=== PATIENT | male | born 1970 | race Caucasian/White ===

== ENCOUNTER → 2020-08-28 | Outpatient (CLI) | payer OTHER ==
[2020-08-31 17:07] LABS: ANA (HEP2) Negative (.)
--- NOTE | 2020-09-02 11:29 | REP ---
BILATERAL HAND SERIES: 8-VIEWS HISTORY: Arthralgia. FINDINGS: Four views of the right wrist demonstrate overall normal mineralization. 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 There is minimal narrowing of the second carpometacarpal articulation and minimal spurring is seen at the first carpometacarpal articulation on the right. No erosive changes are seen. The right hand views are otherwise unremarkable. On the left, there is overall normal mineralization. There is mild spurring at the interphalangeal (IP) joint of the thumb. There is a small metallic foreign body in the soft tissues dorsally at the first metacarpophalangeal joint of the thumb. Bones, joints, and soft tissues are otherwise unremarkable. IMPRESSION: Small metallic foreign body at the dorsal soft tissues of the left first carpometacarpal articulation. Interphalangeal (IP) joint spurring at the thumb on the left. 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 MTDD
--- NOTE | 2020-09-02 11:33 | REP ---
BILATERAL ANKLE SERIES: 8-VIEWS HISTORY: Arthralgia. FINDINGS: Four views of the left ankle demonstrate an intact ankle mortise. There is Achilles and plantar calcaneal spurring. Minimal distal tibial spurring is seen. On the right, the ankle mortise is intact. There is mild spurring of the medial talar dome and more prominent osteoarthritic spurring is seen at the tibiotalar articulation anteriorly. There is Achilles calcaneal spurring and plantar calcaneal spurring on the right as well. IMPRESSION: Bilateral heel spurring. Osteoarthritic spurring at the ankles bilaterally, right greater than left. MTDD
--- NOTE | 2020-09-02 11:34 | REP ---
BILATERAL WRIST SERIES HISTORY: Arthralgia. TECHNIQUE: Four views of bilateral wrists are performed. FINDINGS: There is no acute fracture or dislocation bilaterally. On the right, there is diffuse sclerotic density in the lunate bone with some irregularity along the cortex. There appears to be mild collapse of the bone itself. Findings are compatible with osteonecrosis. There is mild narrowing of the radiocarpal joint. There is slight narrowing between the scaphoid and adjacent distal carpal bones. The ulna is somewhat shorter than the radius compatible with ulnar minus variance. It appears to be about 6 mm shorter. On the left, the joint spaces appear relatively normal without significant arthritic change. IMPRESSION: Ulnar minus variance right wrist with the ulna approximately 5-6 mm shorter than the radius. Sclerotic density and some collapse of the lunate bone consistent with osteonecrosis. Mild arthritic change radiocarpal joint. Unremarkable left wrist. [facility]
== END ==
LOC: M WUC 11:31
PROVIDERS: ATTEND Internal Medicine
DX: I73.00 Raynaud's syndrome without gangrene (principal); M25.40 Effusion, unspecified joint; M19.041 Primary osteoarthritis, right hand; M19.042 Primary osteoarthritis, left hand; M77.8 Other enthesopathies, not elsewhere classified; M19.032 Primary osteoarthritis, left wrist; M77.31 Calcaneal spur, right foot; M77.32 Calcaneal spur, left foot

== ENCOUNTER → 2020-09-21 | Outpatient (REF) | payer OTHER ==
[2020-09-21 18:00] LABS: APPEARANCE, URINE CLEAR (CLEAR); BACTERIA, URINE AUTO NEGATIVE (NEGATIVE); BILIRUBIN, URINE AUTO NEGATIVE (NEGATIVE); BLOOD, URINE BLOOD NEGATIVE (NEGATIVE); COLOR, URINE YELLOW (YELLOW); GLUCOSE, URINE (UA) AUTO NEGATIVE (NEGATIVE); KETONE, URINE AUTO NEGATIVE (NEGATIVE); LEUKOCYTE ESTERASE, URINE AUTO NEGATIVE (NEGATIVE); MUCUS, URINE SMALL (NEGATIVE); NITRITE, URINE AUTO NEGATIVE (NEGATIVE); PROTEIN, URINE AUTO NEGATIVE (NEGATIVE); RBC, URINE AUTO 0 /HPF (0-3); SPECIFIC GRAVITY URINE AUTO 1.017 (1.002-1.035); SQUAMOUS EPITHELIAL CELL UR AU 0 /HPF (0-6); UROBILINOGEN, URINE AUTO 0.2 mg/dL (0.0-2.0); WBC, URINE AUTO 0 /HPF (0-3)
[2020-09-21 18:02] LABS: BASO % 0.4 % (0.0-1.0); EOS # 0.2 10^3/uL (0.0-0.5); EOS % 1.8 % (0.0-3.0); HEMATOCRIT 51.3 % (42.0-52.0); HEMOGLOBIN 16.1 g/dl (13.5-17.5); LYMPH # 1.7 10^3/uL (1.5-5.0); LYMPH % 18.3 % (24.0-44.0); MEAN CORPUSCULAR HEMOGLOBIN 29.6 pg (27.0-33.0); MEAN CORPUSCULAR HGB CONC 31.4 g/dl (32.0-36.5); MEAN CORPUSCULAR VOLUME 94.3 fl (80.0-96.0); MONO # 0.6 10^3/uL (0.0-0.8); NEUTROPHILS # 6.8 10^3/uL (1.5-8.5); NEUTROPHILS % 73.1 % (36.0-66.0); PLATELET COUNT, AUTOMATED 310 10^3/uL (150-450); RED BLOOD COUNT 5.44 10^6/uL (4.30-6.10); WHITE BLOOD COUNT 9.2 10^3/uL (4.0-10.0)
[2020-09-21 18:50] LABS: CREATININE,RANDOM URINE 98.8 MG/DL
[2020-09-21 19:11] LABS: COMPLEMENT C3 148 MG/DL (90-180); COMPLEMENT C4 22 MG/DL (10-40); RHEUMATOID FACTOR QUANT < 10.0 IU/ML (<15.0); TOTAL PROTEIN 7.9 GM/DL (6.4-8.2)
[2020-09-22 14:22] LABS: ALBUMIN 4.44 GM/DL (3.29-5.55); ALBUMIN % 56.2 % (55.8-66.1); ALPHA-1-GLOBULIN % 4.6 % (2.9-4.9); ALPHA-1-GLOBULINS 0.36 GM/DL (0.17-0.41); ALPHA-2-GLOBULINS 0.92 GM/DL (0.42-0.99); ALPHA-2-GLOBULINS % 11.7 % (7.1-11.8); BETA-1-GLOBULINS 0.45 GM/DL (0.28-0.60); BETA-1-GLOBULINS % 5.7 % (4.7-7.2); BETA-2-GLOBULINS 0.35 GM/DL (0.19-0.55); BETA-2-GLOBULINS % 4.4 % (3.2-6.5); GAMMA GLOBULIN % 17.4 % (11.1-18.8); GAMMA GLOBULINS 1.37 GM/DL (0.65-1.58)
[2020-09-23 11:02] LABS: DRVV SCREEN 35.3 SEC
[2020-09-23 11:06] LABS: PTT LUPUS TYPE ANTICOAG SCREEN 0.9 (0-1.2)
[2020-09-24 13:08] LABS: ANTI CENTROMERE ANTIBODY <0.2 AI (0.0-0.9); ANTI DS-DNA AB Negative (Negative); ANTI SCLERODERMA ANTIBODIES <0.2 AI (0.0-0.9); ANTI-HISTONE ANTIBODIES 0.4 Units (0.0-0.9); BETA-2 GLYCOPROTEIN I ABY IGA <9 (0-25); BETA-2 GLYCOPROTEIN I ABY IGG <9 (0-20); BETA-2 GLYCOPROTEIN I ABY IGM <9 (0-32); CARDIOLIPIN IGA ANTIBODY <9 APL U/mL (0-11); CARDIOLIPIN IGG ANTIBODY <9 GPL U/mL (0-14); CARDIOLIPIN IGM ANTIBODY 26 MPL U/mL (0-12); COMPLEMENT TOTAL (CH50) > 60 U/mL (>41); CYCLIC CITRULLINATED PEPTIDE 66 units (0-19); SSA SJOGRENS A <0.2 AI (0.0-0.9); SSB SJOGRENS B <0.2 AI (0.0-0.9)
== END ==
LOC: M SFHCRHEU 13:08
PROVIDERS: ATTEND Internal Medicine
DX: M06.4 Inflammatory polyarthropathy (principal)

== ENCOUNTER → 2020-10-12 | Outpatient (CLI) | payer OTHER ==
[2020-10-14 14:13] LABS: RNP ANTIBODY > 8.0 AI (0.0-0.9); SMITHS ANTIBODY < 0.2 AI (0.0-0.9)
== END ==
LOC: M WUC 11:24
PROVIDERS: ATTEND Internal Medicine
DX: M06.4 Inflammatory polyarthropathy (principal)

== ENCOUNTER → 2021-03-02 | Outpatient (CLI) | payer OTHER ==
--- NOTE | 2021-03-03 10:38 | ECHO ---
DATE OF PROCEDURE: 03/02/2021 Age: 50 Gender: Male Height: 182 cm Weight: 162 kg REFERRING PHYSICIAN: Katt Romano M.D. INDICATION: Mixed connective tissue disease. MEASUREMENTS: IVS 1.5 cm LV 4.6 cm LVPW 3.5 cm LA 3.7 cm Aorta 3.1 cm IVC 1.5 cm Mitral E wave velocity 85 cm/s Mitral A wave 65 cm/s E prime septal 7.7 cm/s E prime lateral 9.5 cm/s FINDINGS: This study is of fair technical quality corresponding to patients body habitus. Patient is in sinus rhythm. Left ventricle is normal size. Moderate left ventricular hypertrophy is noted. Overall normal LV systolic function with estimated LVEF 60% to 65%. Right ventricle was relatively poorly seen, but does not appear enlarged. Both atria appear normal. Aortic, mitral, and tricuspid valves appear normal. Pulmonic valve was not well visualized. No pericardial effusion is noted. Inferior vena cava is normal size and appropriately collapses with inspiration indicative of normal central venous pressure. Aortic root and aortic arch appear normal. Abdominal aorta was not well seen. Doppler interrogation reveals competent aortic valve without significant stenosis or insufficiency. The same applies for mitral and tricuspid valves. Mitral inflow pattern and tissue Doppler imaging of the mitral annulus revealed normal diastolic function. CONCLUSIONS: 1. Study is of difficult technical quality corresponding to patients body habitus, underlying sinus rhythm. 2. Normal LV size with moderate LVH and preserved LV systolic and diastolic function. 3. No significant valvular disease. 4. Likely normal central venous pressure. 5. Unable to estimate pulmonary artery pressure, but no signs to suggest pulmonary hypertension. MTDD
== END ==
LOC: M CARPUL 08:23
PROVIDERS: ATTEND Internal Medicine
DX: M35.1 Other overlap syndromes (principal)

== ENCOUNTER → 2023-06-26 | Day surgery (SDC) | payer OTHER ==
[~2023-06-26] VITALS: Ht 182.9 cm; Wt 143.5 kg
[~2023-06-26] MED LIST: ATOR1TAB19 PO; LORA-243 PO; NS 1,000 ML IV ONE; PRIL20TA2 PO; VALS320T2 PO; VITMTA PO; hemp oil PO; propofoL 200 MG/20 ML VIAL As Ordered ONE
[2023-06-26 11:10] VITALS: BP 131/70; TEMP 97.3; O2SAT 96
== END | disposition home or self-care (01) ==
LOC: M OPP 08:37
PROVIDERS: ATTEND Internal Medicine Gastroenterology
DX: Z12.11 Encounter for screening for malignant neoplasm of colon (principal); D12.2 Benign neoplasm of ascending colon; K63.5 Polyp of colon; K57.30 Diverticulosis of large intestine without perforation or abscess without bleeding; K62.89 Other specified diseases of anus and rectum; F17.200 Nicotine dependence, unspecified, uncomplicated; Z79.02 Long term (current) use of antithrombotics/antiplatelets; Z79.899 Other long term (current) drug therapy

== ENCOUNTER 2024-03-10 08:24 | Inpatient (IN) | payer OTHER ==
[~2024-03-10] VITALS: Ht 182.9 cm; Wt 143.8 kg
[2024-03-10] VITALS (45 sets, daily range): BP systolic 62–127; BP diastolic 35–67; TEMP 99.7–101.5; O2SAT 91–100
[~2024-03-10 08:24] MED LIST changes: -NS 1,000 ML IV ONE; -propofoL 200 MG/20 ML VIAL As Ordered ONE
[2024-03-10] MEDS ORDERED: BACTDSTA PO (08:34)
[2024-03-10] MEDS ORDERED: NICOTINE 21MG/24HR 1 EA TRANSDERMAL TD SCH (09:00)
[2024-03-10] MEDS ORDERED: VANCOMYCIN HCL 2,000 MG in D5W 500 ML IV ONE (09:10)
[2024-03-10] MEDS: NS 3,000 ML in IV 1 EA IV STA (09:58)
[2024-03-10] MEDS: VANCOMYCIN HCL 1,000 MG, VIAL MATE ADAPTER 1 EACH in D5W 250 ML IV ONE ×2 (10:00→12:31)
[2024-03-10 10:01] LABS: BASO # 0.1 10^3/uL (0.0-0.2); BASO % 0.2 % (0.0-1.0); HEMATOCRIT 44.7 % (42.0-52.0); HEMOGLOBIN 15.4 g/dl (13.5-17.5); LYMPH # 0.3 10^3/uL (1.5-5.0); LYMPH % 1.2 % (24.0-44.0); MEAN CORPUSCULAR HGB CONC 34.5 g/dl (32.0-36.5); MEAN CORPUSCULAR VOLUME 92.7 fl (80.0-96.0); MONO # 1.4 10^3/uL (0.0-0.8); MONO % 4.9 % (2.0-8.0); NEUTROPHILS # 26.2 10^3/uL (1.5-8.5); NEUTROPHILS % 92.7 % (36.0-66.0); PLATELET COUNT, AUTOMATED 297 10^3/uL (150-450); RED BLOOD COUNT 4.82 10^6/uL (4.30-6.10); WHITE BLOOD COUNT 28.2 10^3/uL (4.0-10.0)
[2024-03-10 10:04] LABS: APPEARANCE, URINE HAZY (CLEAR); BACTERIA, URINE AUTO 1+ (NEGATIVE); BILIRUBIN, URINE AUTO NEGATIVE (NEGATIVE); BLOOD, URINE BLOOD NEGATIVE (NEGATIVE); COLOR, URINE AMBER (YELLOW); GLUCOSE, URINE (UA) AUTO NEGATIVE (NEGATIVE); KETONE, URINE AUTO NEGATIVE (NEGATIVE); LEUKOCYTE ESTERASE, URINE AUTO NEGATIVE (NEGATIVE); MUCUS, URINE SMALL (NEGATIVE); NITRITE, URINE AUTO NEGATIVE (NEGATIVE); PROTEIN, URINE AUTO 1+ mg/dL (NEGATIVE); RBC, URINE AUTO 3 /HPF (0-3); SQUAMOUS EPITHELIAL CELL UR AU 0 /HPF (0-6); WBC, URINE AUTO 16 /HPF (0-3)
[2024-03-10] MEDS: PIPERACILLIN/TAZOBACTAM SOD 4.5 GM in D5W MINI-BAG PLUS 50 ML IV ONE (10:07)
[2024-03-10 10:12] LABS: INR 1.39; PARTIAL THROMBOPLASTIN TIME 29.1 SECONDS (24.8-34.2); PROTHROMBIN TIME 16.6 SECONDS (12.5-14.5)
[2024-03-10] MEDS ORDERED: CENT1TAB PO (10:19)
[2024-03-10] MEDS ORDERED: HOME MED LIST COMPLETE! XX SCH (10:20)
[2024-03-10 10:33] LABS: ALBUMIN 2.9 G/DL (3.2-5.2); BILIRUBIN,DIRECT 0.3 MG/DL (<0.4); BILIRUBIN,TOTAL 0.6 MG/DL (0.3-1.2)
[2024-03-10] MEDS: ACETAMINOPHEN 325 MG TAB PO ONE (10:41)
[2024-03-10 10:54] LABS: PROCALCITONIN 2.03 ng/ml
[2024-03-10 10:59] LABS: C REACTIVE PROTEIN QUANTITATIV 38.2 MG/DL (<1.0)
[2024-03-10] MEDS ORDERED: SUCCINYLCHOLINE 100MG/5ML SYRINGE As Ordered ONE (14:17)
[2024-03-10] MEDS ORDERED: ETOMIDATE INJ 20MG/10ML VIAL As Ordered ONE (14:17)
[2024-03-10 14:18] LABS: CALCIUM LEVEL 8.7 MG/DL (8.5-10.1); CREATININE FOR GFR 3.05 MG/DL (0.70-1.30); GLOMERULAR FILTRATION RATE 23.2 (>56); POTASSIUM SERUM 4.3 MMOL/L (3.5-5.1)
[2024-03-10] MEDS ORDERED: MORPHINE 2 MG/ML 1ML VIAL IV PRN (14:30)
[2024-03-10] MEDS ORDERED: MORPHINE 4 MG/ML 1ML VIAL IV PRN (14:30)
[2024-03-10] MEDS: NS 1,000 ML IV ONE ×2 (14:31→21:02)
[2024-03-10] MEDS ORDERED: LORazepam 2 MG TAB PO PRN (14:35)
[2024-03-10] MEDS: PHENYLephrine 500MCG 5ML (100MCG/ML) SYRINGE IV ONE (14:45)
[2024-03-10] MEDS ORDERED: VASOPRESSIN INJ 20UNITS/ML 1ML VIAL As Ordered ONE (14:46)
[2024-03-10] MEDS ORDERED: fentaNYL 100 MCG/2 ML INJECTION As Ordered ONE (15:05)
[2024-03-10] MEDS ORDERED: PHENYLEPHRINE 10MG/ML 1ML VIAL IV ONE (15:05)
[2024-03-10] MEDS ORDERED: ROCURONIUM BROMIDE 50MG/5ML VIAL As Ordered ONE (15:12)
[2024-03-10] MEDS ORDERED: ONDANSETRON 4MG 2ML VIAL As Ordered ONE (15:25)
[2024-03-10] MEDS ORDERED: METOCLOPRAMIDE INJ 10MG/2ML VIAL As Ordered ONE (15:25)
[2024-03-10] MEDS ORDERED: PROPOFOL 1,000 MG/100 ML VIAL As Ordered ONE (16:01)
[2024-03-10] MEDS: propofoL 1,000 MG in IV 1 EA IV SCH (16:18)
[2024-03-10] MEDS: fentaNYL 100 MCG/2 ML INJECTION IV PRN ×2 (16:27→17:28)
[2024-03-10] MEDS: LIDOCAINE 2% 5ML JELLY UROJET As Ordered ONE (16:34)
[2024-03-10 16:52] LABS: ABG BASE EXCESS -10.2 (-2.0-2.0); ABG HCO3 16.7 MMOL/L (22.0-26.0); ABG O2 SATURATION 94.6 % (95.0-99.0); ABG PARTIAL PRESSURE CO2 40.1 mmHg (35.0-45.0); ABG PARTIAL PRESSURE O2 82.5 mmHg (75.0-100.0); ABG STANDARD HCO3 16.4 MMOL/L. (22.0-26.0); ABG TOTAL CO2 17.9 MMOL/L (22.0-29.0)
[2024-03-10 16:53] LABS: ABG pH (ARTERIAL) 7.237 UNITS (7.350-7.450)
[2024-03-10] MEDS ORDERED: INSULIN LISPRO (NovoLOG) PER UNIT SC PRN (16:55)
[2024-03-10] MEDS ORDERED: HYDROMORPHONE HCL 0.5 MG/ 0.5 ML SYRINGE IV PRN (16:55)
[2024-03-10] MEDS ORDERED: ONDANSETRON 4MG 2ML VIAL IV PRN (16:55)
[2024-03-10] MEDS ORDERED: diphenhydrAMINE 50MG/ML VIAL IV PRN (16:55)
[2024-03-10] MEDS ORDERED: NS 1,000 ML IV SCH (16:55)
[2024-03-10] MEDS ORDERED: oxyCODONE 5MG TAB PO PRN (16:55)
[2024-03-10] MEDS ORDERED: GLUCAGON INJ 1MG VIAL SC PRN (16:55)
[2024-03-10] MEDS ORDERED: fentaNYL 100 MCG/2 ML INJECTION IV PRN ×2 (16:55→17:20)
[2024-03-10] MEDS ORDERED: DEXTROSE 50% 50ML SYRINGE IV PRN (16:55)
[2024-03-10] MEDS ORDERED: MEPERIDINE 25 MG/ML 1ML VIAL IV PRN (16:55)
[2024-03-10] MEDS ORDERED: GLUCOSE 4 GM CHEW PO PRN (16:55)
[2024-03-10] MEDS ORDERED: fentaNYL 100 MCG/2 ML INJECTION IV ONE (16:55)
[2024-03-10] MEDS ORDERED: METOCLOPRAMIDE INJ 10MG/2ML VIAL IV PRN (16:55)
[2024-03-10] MEDS ORDERED: PHENYLephrine 500MCG 5ML (100MCG/ML) SYRINGE As Ordered ONE (16:56)
[2024-03-10] MEDS ORDERED: CLINDAMYCIN 600 MG in IV 1 EA IV SCH (17:00)
[2024-03-10] MEDS: SODIUM BICARBONATE 8.4% INJ 50ML SYRINGE IV STA (17:16)
[2024-03-10] MEDS ORDERED: FENTANYL DRIP LOCK BOX KEY 1 EACH XX PRN (17:20)
[2024-03-10 17:25] LABS: CALCIUM LEVEL 7.3 MG/DL (8.5-10.1); CREATININE FOR GFR 2.12 MG/DL (0.70-1.30); GLOMERULAR FILTRATION RATE 35.2 (>56); POTASSIUM SERUM 4.1 MMOL/L (3.5-5.1)
[2024-03-10] MEDS: PIPERACILLIN/TAZOBACTAM SOD 3.375 GM in D5W MINI-BAG PLUS 50 ML IV SCH (18:00)
[2024-03-10] MEDS: LACTOBACILLUS ACIDOPHILUS CAP (BACID) PO SCH (18:00)
[2024-03-10] MEDS: LR 1,000 ML IV ONE (18:00)
[2024-03-10] MEDS: MULTIVITAMINS/MINERALS THERAP 1 TAB PO SCH (18:15)
[2024-03-10] MEDS: FOLIC ACID 1MG TAB PO SCH (18:15)
[2024-03-10] MEDS: THIAMINE 100 MG TAB PO SCH (18:15)
[2024-03-10 18:33] LABS: ABG BASE EXCESS -7.4 (-2.0-2.0); ABG O2 SATURATION 95.4 % (95.0-99.0); ABG PARTIAL PRESSURE CO2 31.4 mmHg (35.0-45.0); ABG PARTIAL PRESSURE O2 80.6 mmHg (75.0-100.0); ABG STANDARD HCO3 18.4 MMOL/L. (22.0-26.0); ABG TOTAL CO2 17.9 MMOL/L (22.0-29.0); ABG pH (ARTERIAL) 7.351 UNITS (7.350-7.450)
[2024-03-10] MEDS: fentaNYL CITRATE/NaCl 1,000 MCG in IV 1 EA IV SCH (19:05)
[2024-03-10] MEDS: CLINDAMYCIN 900 MG in IV 1 EA IV SCH (19:09)
[2024-03-10] MEDS: LR 1,000 ML IV SCH (19:20)
[2024-03-10] MEDS: MIDAZOLAM 100MG/100ML-0.9%NACL 100 MG in IV 1 EA IV SCH (20:05)
[2024-03-10] MEDS ORDERED: NOREPINEPHRINE 4MG/4ML AMP As Ordered ONE (20:43)
[2024-03-10] MEDS: NOREPINEPHRINE 4MG IN D5 250ML 4 MG in IV 1 EA IV SCH (20:49)
[2024-03-10] MEDS: MIDAZOLAM INJ 2MG/2ML VIAL IV PRN (21:00)
[2024-03-10] MEDS ORDERED: PANTOPRAZOLE 40MG VIAL IV SCH (21:00)
[2024-03-10] MEDS: PANTOPRAZOLE 40MG VIAL IV SCH (21:04)
[2024-03-10 21:39] LABS: HEMOGLOBIN 12.6 g/dl (13.5-17.5)
[2024-03-11] VITALS (53 sets, daily range): BP systolic 78–132; BP diastolic 40–64; TEMP 97.9–101.7; O2SAT 93–99
[2024-03-11] MEDS: NS 1,000 ML IV ONE (02:41)
[2024-03-11] MEDS: NS 500 ML IV ONE (03:52)
[2024-03-11 04:40] LABS: HEMATOCRIT 32.5 % (42.0-52.0); HEMOGLOBIN 10.8 g/dl (13.5-17.5); MEAN CORPUSCULAR HEMOGLOBIN 31.6 pg (27.0-33.0); MEAN CORPUSCULAR HGB CONC 33.2 g/dl (32.0-36.5); PLATELET COUNT, AUTOMATED 265 10^3/uL (150-450); RED BLOOD COUNT 3.42 10^6/uL (4.30-6.10)
[2024-03-11 05:09] LABS: ALBUMIN 1.7 G/DL (3.2-5.2); BILIRUBIN,TOTAL 0.2 MG/DL (0.3-1.2); CREATININE FOR GFR 1.52 MG/DL (0.70-1.30); GLOMERULAR FILTRATION RATE 51.7 (>56); POTASSIUM SERUM 3.6 MMOL/L (3.5-5.1); TOTAL PROTEIN 4.6 G/DL (5.7-8.2)
[2024-03-11] MEDS: HEPARIN SOD (PORCINE) 5000UNITS/ML 1ML VIAL/SYRINGE SQ SCH (06:00)
[2024-03-11 06:10] LABS: ABG BASE EXCESS -5.6 (-2.0-2.0); ABG HCO3 20.2 MMOL/L (22.0-26.0); ABG O2 SATURATION 68.7 % (95.0-99.0); ABG PARTIAL PRESSURE CO2 40.5 mmHg (35.0-45.0); ABG STANDARD HCO3 19.3 MMOL/L. (22.0-26.0); ABG TOTAL CO2 21.4 MMOL/L (22.0-29.0); ABG pH (ARTERIAL) 7.315 UNITS (7.350-7.450)
[2024-03-11 06:12] LABS: ABG PARTIAL PRESSURE O2 35.7 mmHg (75.0-100.0)
[2024-03-11 06:40] LABS: ABG BASE EXCESS -6.4 (-2.0-2.0); ABG HCO3 18.3 MMOL/L (22.0-26.0); ABG O2 SATURATION 97.7 % (95.0-99.0); ABG PARTIAL PRESSURE CO2 33.7 mmHg (35.0-45.0); ABG PARTIAL PRESSURE O2 99.1 mmHg (75.0-100.0); ABG STANDARD HCO3 19.3 MMOL/L. (22.0-26.0); ABG TOTAL CO2 19.3 MMOL/L (22.0-29.0); ABG pH (ARTERIAL) 7.352 UNITS (7.350-7.450)
[2024-03-11] MEDS ORDERED: dexmedeTOMidine 200 MCG in IV 1 EA IV SCH (08:15)
[2024-03-11 08:22] LABS: VANCOMYCIN RANDOM 5.6 UG/ML
[2024-03-11] MEDS: VANCOMYCIN HCL 1,000 MG, VIAL MATE ADAPTER 1 EACH in D5W 250 ML IV SCH ×2 (09:00→15:34)
[2024-03-11 09:45] LABS: ABG BASE EXCESS -4.8 (-2.0-2.0); ABG HCO3 19.2 MMOL/L (22.0-26.0); ABG O2 SATURATION 97.7 % (95.0-99.0); ABG PARTIAL PRESSURE CO2 32.3 mmHg (35.0-45.0); ABG PARTIAL PRESSURE O2 99.1 mmHg (75.0-100.0); ABG STANDARD HCO3 20.5 MMOL/L. (22.0-26.0); ABG TOTAL CO2 20.2 MMOL/L (22.0-29.0); ABG pH (ARTERIAL) 7.392 UNITS (7.350-7.450)
[2024-03-11] MEDS: SODIUM BICARBONATE 150 MEQ in STERILE WATER LITER BAG 1,000 ML IV SCH (09:48)
[2024-03-11] MEDS: ACETAMINOPHEN TAB 650MG DOSE (2X325MG) PO PRN (14:14)
[2024-03-11] MEDS: MORPHINE 2 MG/ML 1ML VIAL IV PRN (15:34)
[2024-03-11] MEDS: SENNA 8.6 MG TAB (SENOKOT) PO SCH (21:09)
[2024-03-12] VITALS (11 sets, daily range): BP systolic 85–144; BP diastolic 49–88; TEMP 97.7–100.2; O2SAT 97–99
[2024-03-12 07:00] LABS: BASO # 0.1 10^3/uL (0.0-0.2); BASO % 0.4 % (0.0-1.0); EOS # 0.1 10^3/uL (0.0-0.5); EOS % 0.9 % (0.0-3.0); HEMOGLOBIN 10.6 g/dl (13.5-17.5); LYMPH # 1.1 10^3/uL (1.5-5.0); LYMPH % 9.6 % (24.0-44.0); MEAN CORPUSCULAR HEMOGLOBIN 30.2 pg (27.0-33.0); MEAN CORPUSCULAR HGB CONC 32.1 g/dl (32.0-36.5); MONO # 0.7 10^3/uL (0.0-0.8); MONO % 5.9 % (2.0-8.0); NEUTROPHILS # 9.8 10^3/uL (1.5-8.5); NEUTROPHILS % 82.4 % (36.0-66.0); PLATELET COUNT, AUTOMATED 269 10^3/uL (150-450); RED BLOOD COUNT 3.51 10^6/uL (4.30-6.10); WHITE BLOOD COUNT 11.9 10^3/uL (4.0-10.0)
[2024-03-12 07:28] LABS: ALBUMIN 1.9 G/DL (3.2-5.2); ALKALINE PHOSPHATASE 79 U/L (46-116); ALT/SGPT 34 U/L (7.0-40); AST/SGOT 24 U/L (<34); BILIRUBIN,TOTAL 0.4 MG/DL (0.3-1.2); BLOOD UREA NITROGEN 12 MG/DL (9-23); CALCIUM LEVEL 7.2 MG/DL (8.5-10.1); CARBON DIOXIDE LEVEL 27 MMOL/L (20-31); CHLORIDE LEVEL 105 MMOL/L (98-107); CREATININE FOR GFR 0.92 MG/DL (0.70-1.30); GLOMERULAR FILTRATION RATE > 60.0 (>56); GLUCOSE, FASTING 107 MG/DL (60-100); MAGNESIUM LEVEL 2.3 MG/DL (1.8-2.4); POTASSIUM SERUM 3.7 MMOL/L (3.5-5.1); SODIUM LEVEL 137 MMOL/L (136-145); TOTAL PROTEIN 4.9 G/DL (5.7-8.2)
[2024-03-12] MEDS: ENOXAPARIN 40MG/0.4ML SYRINGE (J1650 PER 10MG) SC SCH (07:50)
[2024-03-12] MEDS: ATORVASTATIN 10 MG TAB PO SCH (07:52)
[2024-03-12] MEDS ORDERED: VANCOMYCIN HCL 1,000 MG, VIAL MATE ADAPTER 1 EACH in D5W 250 ML IV SCH (08:00)
[2024-03-12] MEDS ORDERED: ENOXAPARIN 40MG/0.4ML SYRINGE (J1650 PER 10MG) SC SCH (09:00)
[2024-03-13 06:00] VITALS: BP 126/70; TEMP 97.9; O2SAT 96
[2024-03-13 06:10] LABS: BASO % 0.5 % (0.0-1.0); EOS # 0.2 10^3/uL (0.0-0.5); EOS % 1.8 % (0.0-3.0); HEMATOCRIT 32.6 % (42.0-52.0); HEMOGLOBIN 10.9 g/dl (13.5-17.5); LYMPH # 1.4 10^3/uL (1.5-5.0); LYMPH % 16.6 % (24.0-44.0); MEAN CORPUSCULAR HEMOGLOBIN 31.1 pg (27.0-33.0); MEAN CORPUSCULAR HGB CONC 33.4 g/dl (32.0-36.5); MEAN CORPUSCULAR VOLUME 92.9 fl (80.0-96.0); MONO # 0.7 10^3/uL (0.0-0.8); MONO % 7.7 % (2.0-8.0); NEUTROPHILS # 6.1 10^3/uL (1.5-8.5); NEUTROPHILS % 72.3 % (36.0-66.0); PLATELET COUNT, AUTOMATED 293 10^3/uL (150-450); RED BLOOD COUNT 3.51 10^6/uL (4.30-6.10); WHITE BLOOD COUNT 8.4 10^3/uL (4.0-10.0)
[2024-03-13 06:28] LABS: ALKALINE PHOSPHATASE 82 U/L (46-116); ALT/SGPT 36 U/L (7.0-40); AST/SGOT 32 U/L (<34); BILIRUBIN,TOTAL 0.3 MG/DL (0.3-1.2); BLOOD UREA NITROGEN 13 MG/DL (9-23); CALCIUM LEVEL 7.8 MG/DL (8.5-10.1); CARBON DIOXIDE LEVEL 27 MMOL/L (20-31); CHLORIDE LEVEL 104 MMOL/L (98-107); CREATININE FOR GFR 0.94 MG/DL (0.70-1.30); GLOMERULAR FILTRATION RATE > 60.0 (>56); GLUCOSE, FASTING 97 MG/DL (60-100); MAGNESIUM LEVEL 2.5 MG/DL (1.8-2.4); POTASSIUM SERUM 3.9 MMOL/L (3.5-5.1); SODIUM LEVEL 138 MMOL/L (136-145); TOTAL PROTEIN 5.1 G/DL (5.7-8.2)
[2024-03-13 07:11] LABS: HIV 1&2 SCREEN NEGATIVE (NEGATIVE)
[2024-03-13 07:19] LABS: HEPATITIS C VIRUS ABY INDEX < 0.02 INDEX (<0.8)
[2024-03-13] MEDS: CEPHALEXIN 500 MG CAP PO SCH (13:00)
[2024-03-13 14:00] VITALS: BP 123/71; TEMP 98.1; O2SAT 97
[2024-03-13] MEDS ORDERED: metroNIDAZOLE (FLAGYL) 500MG TABLET PO SCH (16:00)
[2024-03-13] MEDS: PIPERACILLIN/TAZOBACTAM SOD 3.375 GM in D5W MINI-BAG PLUS 50 ML IV SCH (17:37)
[2024-03-13] MEDS: VANCOMYCIN HCL 1,000 MG, VIAL MATE ADAPTER 1 EACH in D5W 250 ML IV SCH (19:09)
[2024-03-13 20:00] VITALS: BP 118/60; TEMP 98.2; O2SAT 92
[2024-03-13] MEDS: RAMELTEON 8 MG TAB (ROZEREM) PO SCH (22:00)
[2024-03-14 06:00] VITALS: BP 111/59; TEMP 98.1; O2SAT 95
[2024-03-14 06:19] LABS: BASO % 0.5 % (0.0-1.0); EOS # 0.2 10^3/uL (0.0-0.5); EOS % 2.8 % (0.0-3.0); HEMATOCRIT 33.2 % (42.0-52.0); HEMOGLOBIN 10.8 g/dl (13.5-17.5); LYMPH # 1.3 10^3/uL (1.5-5.0); LYMPH % 15.1 % (24.0-44.0); MEAN CORPUSCULAR HEMOGLOBIN 30.9 pg (27.0-33.0); MEAN CORPUSCULAR HGB CONC 32.5 g/dl (32.0-36.5); MEAN CORPUSCULAR VOLUME 94.9 fl (80.0-96.0); MONO # 0.9 10^3/uL (0.0-0.8); MONO % 10.1 % (2.0-8.0); NEUTROPHILS % 69.7 % (36.0-66.0); PLATELET COUNT, AUTOMATED 335 10^3/uL (150-450); WHITE BLOOD COUNT 8.5 10^3/uL (4.0-10.0)
[2024-03-14 06:48] LABS: BLOOD UREA NITROGEN 13 MG/DL (9-23); CALCIUM LEVEL 7.8 MG/DL (8.5-10.1); CARBON DIOXIDE LEVEL 26 MMOL/L (20-31); CHLORIDE LEVEL 106 MMOL/L (98-107); CREATININE FOR GFR 0.83 MG/DL (0.70-1.30); GLOMERULAR FILTRATION RATE > 60.0 (>56); GLUCOSE, FASTING 109 MG/DL (60-100); MAGNESIUM LEVEL 2.2 MG/DL (1.8-2.4); POTASSIUM SERUM 3.8 MMOL/L (3.5-5.1); SODIUM LEVEL 140 MMOL/L (136-145)
[2024-03-14 08:10] VITALS: BP 146/83; TEMP 97.9; O2SAT 98
[2024-03-14 09:57] VITALS: BP_SYST 121; BP_SYST 146; BP_DIAS 72; BP_DIAS 86; O2SAT 98
[2024-03-14] MEDS: VANCOMYCIN HCL 1,000 MG, VIAL MATE ADAPTER 1 EACH in D5W 250 ML IV SCH (10:28)
[2024-03-14 14:07] VITALS: BP 131/77; TEMP 97.7; O2SAT 98
[2024-03-14 14:09] LABS: HEPATITIS B CORE ANTIBODY IGG Negative (Negative)
[2024-03-14 17:29] LABS: C REACTIVE PROTEIN QUANTITATIV 28.8 MG/DL (<1.0)
[2024-03-14 22:00] VITALS: BP 145/76; TEMP 98.1; O2SAT 98
[2024-03-15 05:37] VITALS: BP 117/67; TEMP 98.2; O2SAT 97
[2024-03-15 06:05] LABS: BASO # 0.1 10^3/uL (0.0-0.2); BASO % 0.5 % (0.0-1.0); EOS # 0.2 10^3/uL (0.0-0.5); EOS % 1.9 % (0.0-3.0); HEMATOCRIT 34.6 % (42.0-52.0); HEMOGLOBIN 11.5 g/dl (13.5-17.5); LYMPH # 1.2 10^3/uL (1.5-5.0); LYMPH % 10.3 % (24.0-44.0); MEAN CORPUSCULAR HEMOGLOBIN 30.8 pg (27.0-33.0); MEAN CORPUSCULAR HGB CONC 33.2 g/dl (32.0-36.5); MEAN CORPUSCULAR VOLUME 92.8 fl (80.0-96.0); MONO # 0.9 10^3/uL (0.0-0.8); MONO % 7.8 % (2.0-8.0); NEUTROPHILS % 76.8 % (36.0-66.0); PLATELET COUNT, AUTOMATED 362 10^3/uL (150-450); RED BLOOD COUNT 3.73 10^6/uL (4.30-6.10); WHITE BLOOD COUNT 11.7 10^3/uL (4.0-10.0)
[2024-03-15 06:32] LABS: BLOOD UREA NITROGEN 10 MG/DL (9-23); CALCIUM LEVEL 8.2 MG/DL (8.5-10.1); CARBON DIOXIDE LEVEL 26 MMOL/L (20-31); CHLORIDE LEVEL 107 MMOL/L (98-107); CREATININE FOR GFR 1.15 MG/DL (0.70-1.30); GLOMERULAR FILTRATION RATE > 60.0 (>56); GLUCOSE, FASTING 110 MG/DL (60-100); MAGNESIUM LEVEL 2.2 MG/DL (1.8-2.4); SODIUM LEVEL 141 MMOL/L (136-145)
[2024-03-15] MEDS: OMEPRAZOLE 20MG CAP PO SCH (08:36)
[2024-03-15 10:03] LABS: PROCALCITONIN 0.16 ng/ml
[2024-03-15] MEDS: VANCOMYCIN HCL 1,000 MG, VIAL MATE ADAPTER 1 EACH in D5W 250 ML IV SCH (11:21)
[2024-03-15 14:00] VITALS: BP 143/79; TEMP 98.1; O2SAT 97
[2024-03-15] MEDS: LINEZOLID 600MG TABLET (ZYVOX) PO SCH (21:09)
[2024-03-15 21:13] VITALS: BP 149/78; TEMP 98.2; O2SAT 98
[2024-03-16 05:12] VITALS: BP 148/76; TEMP 98.1; O2SAT 95
[2024-03-16 05:34] VITALS: BP 161/86; TEMP 96.8; O2SAT 96
[2024-03-16 06:31] LABS: BASO # 0.1 10^3/uL (0.0-0.2); BASO % 0.6 % (0.0-1.0); EOS # 0.3 10^3/uL (0.0-0.5); EOS % 2.2 % (0.0-3.0); HEMATOCRIT 34.3 % (42.0-52.0); HEMOGLOBIN 11.4 g/dl (13.5-17.5); LYMPH # 1.4 10^3/uL (1.5-5.0); LYMPH % 11.2 % (24.0-44.0); MEAN CORPUSCULAR HEMOGLOBIN 31.2 pg (27.0-33.0); MEAN CORPUSCULAR HGB CONC 33.2 g/dl (32.0-36.5); MONO # 0.9 10^3/uL (0.0-0.8); MONO % 7.1 % (2.0-8.0); NEUTROPHILS # 9.2 10^3/uL (1.5-8.5); NEUTROPHILS % 76.3 % (36.0-66.0); PLATELET COUNT, AUTOMATED 419 10^3/uL (150-450); RED BLOOD COUNT 3.65 10^6/uL (4.30-6.10); WHITE BLOOD COUNT 12.1 10^3/uL (4.0-10.0)
[2024-03-16 06:58] LABS: CALCIUM LEVEL 8.5 MG/DL (8.5-10.1); CREATININE FOR GFR 1.43 MG/DL (0.70-1.30); GLOMERULAR FILTRATION RATE 55.5 (>56); MAGNESIUM LEVEL 2.2 MG/DL (1.8-2.4); POTASSIUM SERUM 4.1 MMOL/L (3.5-5.1)
[2024-03-16] MEDS: NS 1,000 ML IV ONE (11:33)
[2024-03-16] MEDS: NS 0.45% 1,000 ML IV SCH (13:53)
[2024-03-16 14:00] VITALS: BP 168/79; TEMP 98.1; O2SAT 98
[2024-03-16] MEDS: ALPRAZolam 0.5 MG TAB PO PRN (18:45)
[2024-03-16 19:38] VITALS: BP 163/85; TEMP 98.1; O2SAT 96
[2024-03-16 23:15] LABS: CALCIUM LEVEL 7.6 MG/DL (8.5-10.1); CREATININE FOR GFR 1.46 MG/DL (0.70-1.30); GLOMERULAR FILTRATION RATE 54.2 (>56); POTASSIUM SERUM 3.5 MMOL/L (3.5-5.1)
[2024-03-17 05:34] VITALS: BP 154/80; TEMP 98.4; O2SAT 98
[2024-03-17 06:36] LABS: BASO # 0.1 10^3/uL (0.0-0.2); BASO % 0.6 % (0.0-1.0); EOS # 0.3 10^3/uL (0.0-0.5); EOS % 2.5 % (0.0-3.0); HEMATOCRIT 33.9 % (42.0-52.0); HEMOGLOBIN 11.2 g/dl (13.5-17.5); LYMPH # 1.4 10^3/uL (1.5-5.0); LYMPH % 13.5 % (24.0-44.0); MEAN CORPUSCULAR HEMOGLOBIN 31.1 pg (27.0-33.0); MEAN CORPUSCULAR VOLUME 94.2 fl (80.0-96.0); MONO # 0.7 10^3/uL (0.0-0.8); MONO % 6.8 % (2.0-8.0); NEUTROPHILS # 7.9 10^3/uL (1.5-8.5); NEUTROPHILS % 74.7 % (36.0-66.0); PLATELET COUNT, AUTOMATED 404 10^3/uL (150-450); WHITE BLOOD COUNT 10.5 10^3/uL (4.0-10.0)
[2024-03-17 06:54] LABS: CALCIUM LEVEL 7.6 MG/DL (8.5-10.1); CREATININE FOR GFR 1.47 MG/DL (0.70-1.30); GLOMERULAR FILTRATION RATE 53.8 (>56); POTASSIUM SERUM 3.8 MMOL/L (3.5-5.1)
[2024-03-17 12:31] LABS: ANTI-STREPTOLYSIN O QUANT 64.6 IU/ML (<195); COMPLEMENT C3 157.1 MG/DL (90.0-170.0); COMPLEMENT C4 23.2 MG/DL (12-36)
[2024-03-17 13:16] LABS: APPEARANCE, URINE CLEAR (CLEAR); BACTERIA, URINE AUTO NEGATIVE (NEGATIVE); BILIRUBIN, URINE AUTO NEGATIVE (NEGATIVE); BLOOD, URINE BLOOD NEGATIVE (NEGATIVE); COLOR, URINE YELLOW (YELLOW); GLUCOSE, URINE (UA) AUTO NEGATIVE (NEGATIVE); KETONE, URINE AUTO NEGATIVE (NEGATIVE); LEUKOCYTE ESTERASE, URINE AUTO NEGATIVE (NEGATIVE); NITRITE, URINE AUTO NEGATIVE (NEGATIVE); PROTEIN, URINE AUTO NEGATIVE (NEGATIVE); RBC, URINE AUTO 0 /HPF (0-3); SPECIFIC GRAVITY URINE AUTO 1.006 (1.002-1.035); SQUAMOUS EPITHELIAL CELL UR AU 0 /HPF (0-6); UROBILINOGEN, URINE AUTO 0.2 mg/dL (0.0-2.0); WBC, URINE AUTO 2 /HPF (0-3)
[2024-03-17 13:42] LABS: CREATININE,RANDOM URINE 55.2 MG/DL
[2024-03-17 14:00] VITALS: BP 135/74; TEMP 98.1; O2SAT 97
[2024-03-17 20:25] VITALS: BP 132/74; TEMP 98.1; O2SAT 97
[2024-03-18 05:16] VITALS: BP 130/70; TEMP 98.1; O2SAT 95
[2024-03-18 06:14] LABS: BASO % 0.4 % (0.0-1.0); EOS # 0.2 10^3/uL (0.0-0.5); EOS % 2.1 % (0.0-3.0); HEMATOCRIT 34.2 % (42.0-52.0); HEMOGLOBIN 11.4 g/dl (13.5-17.5); LYMPH # 1.5 10^3/uL (1.5-5.0); LYMPH % 15.4 % (24.0-44.0); MEAN CORPUSCULAR HGB CONC 33.3 g/dl (32.0-36.5); MEAN CORPUSCULAR VOLUME 92.9 fl (80.0-96.0); MONO # 0.7 10^3/uL (0.0-0.8); MONO % 7.1 % (2.0-8.0); NEUTROPHILS # 7.2 10^3/uL (1.5-8.5); NEUTROPHILS % 73.7 % (36.0-66.0); PLATELET COUNT, AUTOMATED 465 10^3/uL (150-450); RED BLOOD COUNT 3.68 10^6/uL (4.30-6.10); WHITE BLOOD COUNT 9.7 10^3/uL (4.0-10.0)
[2024-03-18 06:41] LABS: CALCIUM LEVEL 7.6 MG/DL (8.5-10.1); CREATININE FOR GFR 1.45 MG/DL (0.70-1.30); GLOMERULAR FILTRATION RATE 54.6 (>56); MAGNESIUM LEVEL 2.2 MG/DL (1.8-2.4)
[2024-03-18 09:00] VITALS: BP 142/80
[2024-03-18 09:46] LABS: C REACTIVE PROTEIN QUANTITATIV 1.7 MG/DL (<1.0)
[2024-03-18] MEDS ORDERED: AMLO1TAB25 PO (10:55)
[2024-03-18] MEDS ORDERED: LINE1TAB6 PO (10:55)
[2024-03-18] MEDS ORDERED: FOLI1TAB11 PO (10:55)
[2024-03-18] MEDS ORDERED: METR-265 PO (10:55)
[2024-03-18] MEDS ORDERED: RISATAB3 PO (10:55)
[2024-03-18] MEDS: metroNIDAZOLE (FLAGYL) 500MG TABLET PO SCH (11:49)
[2024-03-18 14:00] VITALS: BP 130/80; TEMP 98.2; O2SAT 97
== END 2024-03-18 17:08 | disposition home health service (06) | DRG 853 ==
LOC: M ED 08:24 → M ED INP 14:25 → OBSVTOIN 17:17 → M ICU 17:37 → M MSPAV 03-12 20:35
PROVIDERS: ADMIT Internal Medicine; ATTEND General Practice
PROC: 5A1935Z Respiratory Ventilation, Less than 24 Consecutive Hours (ICD-10-PCS; 2024-03-10)
PROC: 0JDM0ZZ Extraction of Left Upper Leg Subcutaneous Tissue and Fascia, Open Approach (ICD-10-PCS; principal; 2024-03-10 13:46)
DX: A41.9 Sepsis, unspecified organism (principal); M72.6 Necrotizing fasciitis; J96.02 Acute respiratory failure with hypercapnia; R65.21 Severe sepsis with septic shock; N17.9 Acute kidney failure, unspecified; E87.20 Acidosis, unspecified; Z68.41 Body mass index [BMI] 40.0-44.9, adult; L02.416 Cutaneous abscess of left lower limb; L03.116 Cellulitis of left lower limb; L97.128 Non-pressure chronic ulcer of left thigh with other specified severity; G47.33 Obstructive sleep apnea (adult) (pediatric); I10 Essential (primary) hypertension; E78.5 Hyperlipidemia, unspecified; B95.7 Other staphylococcus as the cause of diseases classified elsewhere; M32.9 Systemic lupus erythematosus, unspecified; F10.10 Alcohol abuse, uncomplicated; K21.9 Gastro-esophageal reflux disease without esophagitis; M06.9 Rheumatoid arthritis, unspecified; N49.3 Fournier gangrene; M35.00 Sjogren syndrome, unspecified; E66.01 Morbid (severe) obesity due to excess calories; F17.200 Nicotine dependence, unspecified, uncomplicated; D64.9 Anemia, unspecified; Z79.899 Other long term (current) drug therapy

== ENCOUNTER → 2024-03-25 | Outpatient (CLI) | payer OTHER ==
[~2024-03-25] MED LIST changes: +AMLO1TAB25 PO; +BACTDSTA PO; +CENT1TAB PO; +FOLI1TAB11 PO; +LINE1TAB6 PO; +METR-265 PO; +RISATAB3 PO
[2024-03-25 12:52] LABS: BASO # 0.1 10^3/uL (0.0-0.2); BASO % 0.9 % (0.0-1.0); EOS # 0.2 10^3/uL (0.0-0.5); EOS % 2.1 % (0.0-3.0); HEMOGLOBIN 14.3 g/dl (13.5-17.5); LYMPH # 1.4 10^3/uL (1.5-5.0); LYMPH % 14.7 % (24.0-44.0); MEAN CORPUSCULAR HEMOGLOBIN 30.4 pg (27.0-33.0); MEAN CORPUSCULAR HGB CONC 33.3 g/dl (32.0-36.5); MEAN CORPUSCULAR VOLUME 91.3 fl (80.0-96.0); MONO # 0.6 10^3/uL (0.0-0.8); MONO % 6.7 % (2.0-8.0); NEUTROPHILS % 75.2 % (36.0-66.0); PLATELET COUNT, AUTOMATED 415 10^3/uL (150-450); RED BLOOD COUNT 4.71 10^6/uL (4.30-6.10); WHITE BLOOD COUNT 9.4 10^3/uL (4.0-10.0)
[2024-03-25 13:08] LABS: ERYTHROCYTE SEDIMENTATION RATE 73 mm/hr (0-20)
[2024-03-25 13:19] LABS: C REACTIVE PROTEIN QUANTITATIV < 0.40 MG/DL (<1.0)
[2024-03-25 13:57] LABS: ALBUMIN 3.3 G/DL (3.2-5.2); ALKALINE PHOSPHATASE 60 U/L (46-116); ALT/SGPT 23 U/L (7.0-40); AST/SGOT 15 U/L (<34); BILIRUBIN,TOTAL 0.4 MG/DL (0.3-1.2); BLOOD UREA NITROGEN 21 MG/DL (9-23); CALCIUM LEVEL 9.2 MG/DL (8.5-10.1); CARBON DIOXIDE LEVEL 24 MMOL/L (20-31); CHLORIDE LEVEL 107 MMOL/L (98-107); CREATININE FOR GFR 1.18 MG/DL (0.70-1.30); GLOMERULAR FILTRATION RATE > 60.0 (>56); GLUCOSE, FASTING 90 MG/DL (60-100); POTASSIUM SERUM 4.4 MMOL/L (3.5-5.1); SODIUM LEVEL 142 MMOL/L (136-145)
== END ==
LOC: M PLALAB 11:08
PROVIDERS: ATTEND Internal Medicine Infectious Disease
DX: L02.416 Cutaneous abscess of left lower limb (principal)

== ENCOUNTER 2025-09-08 06:38 | Day surgery (SDC) | payer OTHER ==
[~2025-09-08] VITALS: Ht 182.9 cm; Wt 165.4 kg
[~2025-09-08 06:38] MED LIST changes: +METO1TAB32 PO; +TERA5CAP3 PO; +TIRZ2.5V SQ
[2025-09-08] MEDS ORDERED: SIMETHICONE 40MG/0.6ML DROPS 30ML As Ordered ONE (06:57)
[2025-09-08 07:47] VITALS: TEMP 98.3
[2025-09-08 08:02] VITALS: BP 141/77; O2SAT 94
== END 2025-09-08 08:05 | disposition home or self-care (01) ==
LOC: M OPP 06:38
PROVIDERS: ATTEND Internal Medicine Gastroenterology
DX: Z86.0101 Personal history of adenomatous and serrated colon polyps (principal); G47.30 Sleep apnea, unspecified; Z91.048 Other nonmedicinal substance allergy status; Z79.85 Long-term (current) use of injectable non-insulin antidiabetic drugs; Z79.899 Other long term (current) drug therapy; F17.290 Nicotine dependence, other tobacco product, uncomplicated

== ENCOUNTER → 2025-10-24 | Outpatient (CLI) | payer OTHER ==
[~2025-10-24] MED LIST changes: -BACTDSTA PO; +SULF-8 PO
== END ==
LOC: M RAD 10:07
PROVIDERS: ATTEND Internal Medicine
DX: R10.9 Unspecified abdominal pain (principal); R93.2 Abnormal findings on diagnostic imaging of liver and biliary tract